=== PATIENT | female | born 1990 | race African-American/Black ===

== ENCOUNTER 2021-03-11 21:52 | Emergency (ER) | payer BC, SELFPAY ==
[2021-03-11 21:53] VITALS: BP 118/80; PULSE 70; RESP 15; TEMP 36.6; O2SAT 98; BMI 29.0
--- NOTE | 2021-03-11 22:12 | EDS_ITS ---
HPI History of Present Illness Chief Complaint: Back Informant: patient Onset/Context/Timing Onset: Days Context: Sudden Onset Injury: repetitive motion Timing: Continuous Quality: Dull and Aching Location: Lumbar Current Severity: Mild Maximum Severity: Moderate Worsened by: improves with Movement, Ambulation, Bending and Lifting Relieved by: Nothing Associated Symptoms Associated Symptoms: Negative for Numbness, Tingling, Radiation to Right Leg, Radiation to Left Leg, Fever, Abdominal Pain, Dysuria, Unable to Ambulate, Unable to Transfer, Urinary Retention, Urinary Incontinence, Constipation and Fecal Incontinence Narrative Narrative: Patient is a 30-year-old woman who presents with right low back pain. Is been present for days. Movement exacerbates her pain. She denies radicular pain or pain rating on her legs. Denies bowel bladder dysfunction. Denies saddle paresthesia or anesthesia. She reports foot drop. She denies buckling of her knees going up and down steps. She states her last normal menstrual period was in December. She not use any form of control. She does r eport increased nausea. She had no vomiting. She denies fever, chills night sweats. She denies headache, visual, ocular auditory symptoms. She denies sore throat. She denies cardiac respiratory s ymptoms. She denies dysuria, hematuria or urgency. Prior similar symptoms: No Recent Illness/Hospitalization: No PFSH PFSH Medical History no medical history no medical history Allergy/AdvReac Type Severity Reaction Status Date / Time No Known Allergies Allergy Verified 03/11/21 21:52 Surgical History (Updated 03/11/21 @ 22:[address] Cristino Shepard MD) deliv NOS-unsp Social History (Updated 03/11/21 @ 22:[address] Cristino Shepard MD) household members: children alcohol intake: current alcohol intake frequency: holidays/special occasions only substance use type: does not use ROS ROS ED Constitutional Constitutional ED: Denies chills, fever(s), subjective or sweats Eyes Eyes: Denies blurry vision, change in vision or diplopia ENT ENT ED: Denies ear pain, rhinorrhea or sore throat Cardiovascular Cardiovascular: Denies chest pain or palpitations Respiratory/Chest Respiratory/Chest: Denies dyspnea, dyspnea on exertion or sputum Gastrointestinal Gastrointestinal: Reports nausea; Denies abdominal pain, constipation, diarrhea, melena or vomiting Genitourinary Genitourinary ED: Reports urinary frequency; Denies dysuria or hematuria Musculoskeletal Musculoskeletal: Reports back pain; Denies arthralgias, myalgias or neck pain Integumentary Denies abscess or rash Neurologic Neurologic: Denies headache(s) or weakness Endocrine Endocrinology: Denies polydipsia, polyphagia or polyuria EXAM Physical Exam Const Vital Signs: 03/11/21 21:53 Temperature 97.8 F Temperature Source Temporal Pulse Rate 70 Respiratory Rate 15 Blood Pressure 118/80 Blood Pressure Mean 92 Pulse Ox 98 Oxygen Delivery Method Room Air Positive well nourished and well developed General Appearance ED: well developed and NAD; Negative for pallor HEENT Reports TM's clear and moist mucous membranes HEENT Narrative: Head is atraumatic normocephalic. Nares patent. Posterior pharynx out erythema or exudate. Tympanic Membrane ED: Yes TM's clear Eyes PERRL and EOMs intact bilaterally General Eye ED: Negative for scleral icterus Neck no lymphadenopathy, supple and no JVD Resp normal respiratory effort and clear to auscultation bilaterally Cardio regular rate, regular rhythm, S1 normal heart sound, S2 normal heart sound and no murmurs GI normal to inspection, nondistended, normoactive bowel sounds, soft to palpation and non-tender Back/Spine normal to inspection; Negative for no thoracic nor lumbar tenderness Back/Spine Narrative: Crossover test is negative. EHLs intact. Sensation over L4-5 normal. Patient was observed ambulating. She has no foot drop. Gait is not ataxic. She is able to walk on heels and toes. She is able to perform a 1 legged squat. General Back: Negative for CVA tenderness Cervical Spine: Negative for cervical spine tenderness and Negative for paracervical muscle tenderness Thoracic Spine / Upper Back: paraspinal muscle tenderness Lumbar Spine / Lower Back: ROM limited and straight leg raise negative bilaterally Extremity normal to inspection and no clubbing, cyanosis or edema General Extremety ED: Negative for edema or tenderness General Extremity: Negative for edema Neuro oriented x3 and no sensory deficits noted Sensorium / Orientation: alert Motor Exam: strength 5/5 throughout Deep Tendon Reflexes: Rt Patellar (L4): 2+, Lt Patellar (L4): 2+, Rt Ankle (S1): 2+ and Lt Ankle (S1): 2+ Deep Tendon Reflexes Back: Rt Patellar (L4): 2+, Lt Patellar (L4): 2+, Rt Ankle (S1): 2+ and Lt Ankle (S1): 2+ Plantar Reflex: Downgoing: bilateral Psych mental status grossly normal Skin no rashes or lesions noted and no wounds General Skin Exam: Negative for jaundice or pallor MDM MDM MDM Narrative Medical decision making narrative: Since patient reports nausea and last menses was in December transabdominal ultrasound was obtained. Gestational sac is noted. There is no obvious heartbeat noted. Ovaries appear normal. Patient was informed that she has muscular back pain. Her pain is exacerbated with bending to the right and left and palpation on the right side. She has a normal neurologic exam. Since she is she was treated with Tylenol ice and referred to [facility] and she has had no care. Discharge Plan Triage Chief Complaint: Back ED Provider: Cristino Shepard Dx/Rx/DC Orders Clinical Impression: Back pain during Instructions: First Trimester, ED Back Exercises, Lumbar, ED Back and Neck Pain, General Primary Care Provider: Care Physician,No Primary Referrals: Radha Arriaza MD [STAFF PHYSICIAN] - 1-2 Weeks [facility] [address] Doctor,Out of [NON-STAFF] - Disposition Disposition: Home, Self Care
== END 2021-03-11 22:31 | disposition home or self-care (01) ==
PROVIDERS: Emergency Provider Emergency Medicine
DX: O26.899 Other specified pregnancy related conditions, unspecified trimester (principal); M54.50 Low back pain, unspecified; Z3A.00 Weeks of gestation of pregnancy not specified
CPT/HCPCS: 99282

== ENCOUNTER 2021-03-31 09:15 | Emergency (ER) | payer BC, SELFPAY ==
[2021-03-31 09:16] VITALS: BP 110/77; PULSE 75; RESP 16; TEMP 36.4; O2SAT 100; BMI 26.6
--- NOTE | 2021-03-31 09:36 | EKG12_ITS ---
Test Reason : Blood Pressure : / mmHG Vent. Rate : 068 BPM Atrial Rate : 068 BPM P-R Int : 164 ms QRS Dur : 082 ms QT Int : 414 ms P-R-T Axes : 073 020 026 degrees QTc Int : 440 ms Normal sinus rhythm with sinus arrhythmia Normal ECG Confirmed by DIANNA SANCHEZ, DONALDO ([id number]), map editor CESAR GOMES ([id number]) on 04/02/2021 8:18:27 AM Referred By: TUCKER Confirmed By:DONALDO BUSTAMANTE MD
--- NOTE | 2021-03-31 09:48 | EX.ED.DYSGE1 ---
HPI History of Present Illness Chief Complaint: Nausea/Vomiting Narrative Narrative: pt about 8 wks by home test, LNMP 01/27, A0. Has been nauseated w/ occ emesis for 2 months now, but vomiting uncontrollably overnight and developed central burning somewhat pleuritic chest pain this AM that is worse w/ lying supine. no dyspnea. abd soreness from vomiting but no internal abd pains. urinating ok. no vaginal bleeding. has not seen her OB yet; taking OTC [employer] gummy vitamins. PFSH PFSH Medical History no medical history no medical history Home Medications PNV cmb#95-ferrous fumarate-FA [ Formula] 1 tab PO DAILY #30 tab 03/31/21 [Rx Last Taken Unknown] ondansetron 8 mg PO Q8H PRN #20 tab 03/31/21 [Rx Last Taken Unknown] Allergy/AdvReac Type Severity Reaction Status Date / Time No Known Allergies Allergy Verified 03/31/21 09:18 Surgical History deliv NOS-unsp Social History household members: children Smoking Status: Current every day smoker tobacco type: cigarettes alcohol intake: current alcohol intake frequency: holidays/special occasions only substance use type: does not use ROS ROS ED Constitutional Constitutional ED: Reports body ache(s), chills and malaise; Denies fever(s) Eyes Eyes: Denies change in vision or diplopia ENT ENT ED: Denies rhinorrhea or sore throat Cardiovascular Cardiovascular: Reports chest pain; Denies palpitations Respiratory/Chest Respiratory/Chest: Reports cough; Denies dyspnea Gastrointestinal Gastrointestinal: Reports as per HPI, abdominal pain, nausea and vomiting; Denies diarrhea Genitourinary Genitourinary ED: Denies dysuria or hematuria Musculoskeletal Musculoskeletal: Denies back pain or neck pain Integumentary Denies abscess or rash Neurologic Neurologic: Denies headache(s), paresthesias or weakness Psychiatric Psychiatric: Denies anxiety or suicidal thoughts EXAM Physical Exam Const Vital Signs: 03/31/21 09:16 03/31/21 12:03 Temperature 97.6 F L Temperature Source Temporal Pulse Rate 75 Respiratory Rate 16 16 Blood Pressure 110/77 Blood Pressure Mean 88 Pulse Ox 100 Oxygen Delivery Method Room Air Positive well nourished and well developed General Appearance ED: well developed and NAD HEENT Reports moist mucous membranes normocephalic and atraumatic Eyes PERRL and EOMs intact bilaterally Neck full ROM, no lymphadenopathy and supple Resp normal respiratory effort and clear to auscultation bilaterally Cardio regular rate, regular rhythm and no murmurs GI non-tender and non-distended Auscultation: normoactive bowel sounds Palpation: soft Back/Spine no CVA tenderness General Back: other FROM Extremity normal to inspection General Extremety ED: Negative for edema, pulses abnormal or tenderness General Extremity: Negative for edema or pulses abnormal Neuro oriented x3, CN's II-XII intact bilaterally and no sensory deficits noted Sensorium / Orientation: awake and alert Motor Exam: strength 5/5 throughout Skin no rashes or lesions noted and no wounds MDM MDM MDM Narrative Medical decision making narrative: Patient treated with IV fluids, Zofran. This helped her nausea and she was given a GI cocktail which helped her chest discomfort, her cardiac work-up is negative, she is reassured this was probably esophageal discomfort related to the vomiting. Bedside OB ultrasound shows single live intrauterine with good size and heartbeat reassuring to patient. She will be prescribed Zofran and prenatals, advised to follow-up with OB which she is trying to do, since she had a cough and was not feeling well we did a Covid test that was negative and I think this is probably accurate as well. Her urine showed 500 leukocyte esterase but no white blood cells. No bacteria either. I will send for culture but no need for antibiotics at this time Lab Data Attestation: I reviewed the patient's lab results. Labs: Laboratory Results - last 24 hr 03/31/21 03/31/21 03/31/21 09:50 09:50 11:19 WBC 5.4 RBC 4.97 Hgb 8.9 L Hct 29.9 L MCV 60.2 L MCH 17.9 L MCHC 29.8 L RDW Std Deviation 47.6 H RDW Coeff of Sheri 23.2 H Plt Count 419 MPV 8.7 Immature Gran % (Auto) 0.400 Neut % (Auto) 51.8 Lymph % (Auto) 36.1 [place] % (Auto) 10.7 H Eos % (Auto) 0.6 Baso % (Auto) 0.4 Absolute Neuts (auto) 2.8 Absolute Lymphs (auto) 1.93 Nucleated RBC % 0 Hypochromasia 1+ Anisocytosis 1+ Sodium 136 Potassium 3.6 Chloride 107 Carbon Dioxide 20.0 L Anion Gap 9 BUN 4 L Creatinine 0.43 L Estim Creat Clear Calc 177.46 Est GFR (MDRD) Af Amer 219 Est GFR (MDRD) Non-Af 181 BUN/Creatinine Ratio 9.3 L Glucose 73 L Calcium 9.0 Troponin I High Sens 3 Lipase 63 L Urine Color Yellow Urine Clarity Sl. Cloudy Urine pH 7.0 Ur Specific [place] 1.015 Urine Protein Negative Urine Glucose (UA) Normal Urine Ketones 150 A* Urine Occult Blood Negative Urine Nitrite Negative Urine Bilirubin Negative Urine Urobilinogen 4 H Ur Leukocyte Esterase 500 H Urine RBC 0 SEEN Urine WBC 0-5 SEEN Ur Squamous Epith Cells 0-5 SEEN Amorphous Sediment 2+ Urine Bacteria 0 SEEN Urine Mucus 0 SEEN EKG Initial EKG: Attestation: I personally reviewed and interpreted this EKG as follows: Interpretation: Sinus Rhythm (68) and No Acute Injury Pattern Procedures Other Procedures Procedure(s): Bedside OB u/s: SLIUP CRL c/w 9w4d, FHT 158 Discharge Plan Triage Chief Complaint: Nausea/Vomiting ED Provider: Deangelo Taylor Dx/Rx/DC Orders Clinical Impression: Hyperemesis gravidarum, Chest pain, non-cardiac, First trimester Instructions: ED Hyperemesis Gravidarum Prescriptions: New PNV cmb#95-ferrous fumarate-FA [ Formula] 28 mg iron- 800 mcg tablet 1 tab PO DAILY Qty: 30 RF: 0 ondansetron 8 mg tablet,disintegrating 8 mg PO Q8H PRN (Reason: nausea and vomiting) Qty: 20 RF: 0 Stand Alone Forms: Work Status Form Referrals: WILLAM TIAN [Other] OB, your [Other] (when able) Disposition Disposition: Home, Self Care
[2021-03-31 09:59] LABS: Absolute Lymphocyte Count 1.93 X10^3/uL (0.83-4.51); Absolute Neutrophil Count 2.8 X10^3/uL (2.0-7.7); Basophil# 0.02 X10^3/uL; Basophil% 0.4 % (0-1); Eosinophil# 0.03 X10^3/uL; Eosinophils% 0.6 % (0-5); Hematocrit 29.9 % (37-47); Hemoglobin 8.9 g/dL (12.0-15.0); Lymphocyte # 1.93 X10^3/ul (0.83-4.51); Lymphocyte % 36.1 % (19-41); Mean Corp Hgb Conc 29.8 g/dL (32-36); Mean Corpuscular Hgb 17.9 pg (27.0-32.0); Mean Corpuscular Volume 60.2 fL (81-99); Mean Platelet Vol. 8.7 fl (6.2-12.0); Monocyte# 0.57 X10^3/uL; Monocyte% 10.7 % (0-10); NRBC Flagged by Analyzer 0 % (0-5); Neutrophil # 2.78 X10^3/uL (2.7-7.7); Neutrophil % 51.8 % (47-70); POSITIVE MORPHOLOGY YES; Platelet Count 419 K/mm3 (150-450); RBC Distribution Width CV 23.2 % (11.6-14.6); RBC Distribution Width SD 47.6 fl (35.1-43.9); Red Blood Count 4.97 M/mm3 (4.2-5.4); White Blood Count 5.4 K/mm3 (4.4-11.0)
[2021-03-31 10:02] LABS: Differential Indicated SCAN CRITERIA MET
[2021-03-31] MEDS: 0.9% Normal Saline 1,000 ML 1000 ML IV (10:06)
[2021-03-31] MEDS: Ondansetron 4 MG/2 ML Vial IV (10:07)
[2021-03-31] MEDS: Mag Hydrox/Al Hydrox/Simeth 30 ML UDC PO (10:07)
[2021-03-31 10:20] LABS: Anion Gap 9 (5-15); Anisocytosis 1+; BUN 4 mg/dL (7-18); BUN/Creat Ratio 9.3 RATIO (10-20); Chloride 107 mmol/L (98-107); Creatinine, Serum 0.43 mg/dL (0.55-1.02); EST Glomerular Filtration Rate 181 mL/min (>60); Est Glom Filt Rate - Afr Amer 219 mL/min (>60); Estimated Creatinine Clearance 177.46 ml/min; Glucose 73 mg/dL (74-106); Hypochromasia 1+; Lipase 63 U/L (73-393); Potassium 3.6 mmol/L (3.5-5.1); Sodium Level 136 mmol/L (136-145); Troponin-I HS 3 pg/mL (3.0-54.0)
[2021-03-31 11:25] LABS: Bacteria 0 SEEN /hpf (None Seen); Color, Urine Yellow (Yellow); Glucose, Dipstick Normal (Normal); Leukocyte Esterase-Dipstick 500 /ul (Negative); Mucous, Urine 0 SEEN /hpf (<or=2+); Nitrite-Dipstick Negative (Negative); Occult Blood-Urine Negative /ul (Negative); Protein-Dipstick Negative (Negative); Red Blood Cells-Urine 0 SEEN /hpf (0-5); Specific Gravity, Urine 1.015 (1.002-1.030); Urine Bilirubin Dipstick Negative (Negative); Urine Clarity Sl. Cloudy (Clear); Urine Urobilinogen 4 mg/dl (Normal)
[2021-03-31 11:27] LABS: Ketone-Dipstick 150 mg/dl (Negative)
[2021-03-31 11:30] LABS: Amorphous Sediment 2+; Squamous Epithelial Cells - UA 0-5 SEEN /hpf (5-10)
[2021-03-31 11:31] LABS: White Blood Cells 0-5 SEEN /hpf (0-5)
[2021-03-31 12:03] VITALS: RESP 16
--- NOTE | 2021-03-31 12:34 | ED.RN ---
consulted about negative covid test. low clinical suspicion. isolation precautions discontinued per dr serrato. [place], rn [id number]
== END 2021-03-31 13:02 | disposition home or self-care (01) ==
PROVIDERS: Emergency Provider Emergency Medicine
DX: O21.0 Mild hyperemesis gravidarum (principal); O26.891 Other specified pregnancy related conditions, first trimester; O99.331 Smoking (tobacco) complicating pregnancy, first trimester; R07.89 Other chest pain; F17.210 Nicotine dependence, cigarettes, uncomplicated; Z3A.08 8 weeks gestation of pregnancy
CPT/HCPCS: 80048; 81001; 83690; 84484; 85025; 87086; 87088; 87426; 93005; 96361; 96374; 99284; J7030; A4216; J2405